=== PATIENT | female | born 1950 | race African-American/Black ===

== ENCOUNTER 2018-02-19 06:54 | Emergency (ER) | payer MEDICARE, MEDICAID ==
[~2018-02-19] VITALS: Ht 149.9 cm; Wt 73.0 kg
[~2018-02-19 06:54] MED LIST: ALBUTEROL INH; AMLO5TAB4 PO; ASPI-1073; ATOR20TA65 PO; HYDROXYZINE; IPRATROPIUM INH; MONT10TA21 PO; PROAIR INH; TRAM50TA3 PO; TRIAMTERENE HCTZ PO
[2018-02-19 08:07] LABS: BASOPHILS % 0.6 % (0.0-2.0); EOSINOPHILS % 0.8 % (0.0-5.0); HEMATOCRIT. 41.8 % (36.0-48.0); HEMOGLOBIN. 14.5 g/dL (12.0-16.0); LYMPHOCYTES % 12.3 % (20.0-50.0); MEAN CORPUSCULAR HEMOGLOBIN 29.3 pg (28.0-32.0); MEAN CORPUSCULAR VOLUME 84.2 fL (81.0-99.0); MEAN PLATELET VOLUME 9.2 fl (7.4-10.4); MONOCYTES % 5.9 % (2.0-8.0); NEUTROPHILS % 80.4 % (40.0-76.0); PLATELET 261 x1000/uL (130-400); RED BLOOD CELL COUNT 4.96 mill/uL (4.2-5.4); RED CELL DISTRIBUTION WIDTH 15.3 % (11.6-14.6)
[2018-02-19 08:46] LABS: PROTHROMBIN TIME 10.7 sec (9.4-11.6)
[2018-02-19 09:41] LABS: CHLORIDE 101 mEq/L (98-107)
[2018-02-19 13:59] VITALS: BP 117/78
== END 2018-02-19 14:01 | disposition left against medical advice (07) ==
LOC: ER 06:54
DX: R07.9 Chest pain, unspecified (principal); R19.7 Diarrhea, unspecified; R42 Dizziness and giddiness; I10 Essential (primary) hypertension; E78.00 Pure hypercholesterolemia, unspecified; J44.9 Chronic obstructive pulmonary disease, unspecified; Z79.82 Long term (current) use of aspirin; Z88.1 Allergy status to other antibiotic agents; R06.02 Shortness of breath
CPT/HCPCS: 36415; 71045; 80053; 83880; 84484; 85025; 85610; 93005; 99285

== ENCOUNTER 2018-07-15 15:30 | Emergency (ER) | payer MEDICARE, MEDICAID ==
[~2018-07-15] VITALS: Ht 162.6 cm; Wt 73.0 kg
[2018-07-15 16:45] LABS: BASOPHILS % 0.6 % (0.0-2.0); HEMATOCRIT. 40.3 % (36.0-48.0); HEMOGLOBIN. 13.7 g/dL (12.0-16.0); LYMPHOCYTES % 29.6 % (20.0-50.0); MEAN CORPUSCULAR HEMOGLOBIN 29.4 pg (28.0-32.0); MEAN CORPUSCULAR VOLUME 86.6 fL (81.0-99.0); MEAN PLATELET VOLUME 9.3 fl (7.4-10.4); MONOCYTES % 11.2 % (2.0-8.0); NEUTROPHILS % 56.6 % (40.0-76.0); PLATELET 226 x1000/uL (130-400); RED BLOOD CELL COUNT 4.65 mill/uL (4.2-5.4); RED CELL DISTRIBUTION WIDTH 15.1 % (11.6-14.6)
[2018-07-15 16:49] LABS: CHLORIDE 103 mEq/L (98-107)
[2018-07-15 16:51] LABS: PROTHROMBIN TIME 10.3 sec (9.1-11.1)
[2018-07-15] MEDS ORDERED: SODIUM CHLORIDE 0.9% 1,000 ML IV ONE ×2 (18:06→18:51)
[2018-07-15 19:53] LABS: CLARITY URINE CLEAR (CLEAR); COLOR URINE YELLOW (YELLOW); KETONES URINE NEGATIVE (NEGATIVE); LEUKOCYTE ESTERASE URINE NEGATIVE (NEGATIVE); NITRITE URINE NEGATIVE (NEGATIVE); OCCULT BLOOD URINE NEGATIVE (NEGATIVE); PROTEIN URINE NEGATIVE (NEGATIVE); SPECIFIC GRAVITY URINE 1.004 (1.005-1.030); UROBILINOGEN URINE 0.2 E.U./dL (0.2-1.0)
[2018-07-15 20:06] LABS: *AMPHETAMINES SCREEN URINE NEGATIVE (NEGATIVE); *BARBITURATES SCREEN URINE NEGATIVE (NEGATIVE); *BENZODIAZEPINES SCREEN URINE NEGATIVE (NEGATIVE); *COCAINE SCREEN URINE NEGATIVE (NEGATIVE)
[2018-07-15 20:07] LABS: CANNABINOID URINE SCREEN NEGATIVE (NEGATIVE); METHADONE URINE SCREEN NEGATIVE (NEGATIVE); OPIATES URINE SCREEN NEGATIVE (NEGATIVE); PHENCYCLIDINE URINE SCREEN NEGATIVE (NEGATIVE)
[2018-07-15 21:00] VITALS: BP 154/91
== END 2018-07-15 21:02 | disposition home or self-care (01) ==
LOC: ER 18:24
DX: E86.0 Dehydration (principal); R42 Dizziness and giddiness; R51 Headache; J44.9 Chronic obstructive pulmonary disease, unspecified; E78.00 Pure hypercholesterolemia, unspecified; I10 Essential (primary) hypertension; Z98.890 Other specified postprocedural states; Z79.82 Long term (current) use of aspirin; Z88.1 Allergy status to other antibiotic agents; Z79.899 Other long term (current) drug therapy
CPT/HCPCS: 36415; 70450; 71045; 80053; 80305; 81003; 83605; 84484; 85025; 85610; 93005; 96360; 99285; J7030

== ENCOUNTER 2019-01-14 14:29 | Emergency (ER) | payer MEDICARE, MEDICAID ==
[~2019-01-14] VITALS: Ht 149.9 cm; Wt 73.0 kg
[2019-01-14 15:00] LABS: CLARITY URINE TURBID (CLEAR); COLOR URINE YELLOW (YELLOW); KETONES URINE NEGATIVE (NEGATIVE); LEUKOCYTE ESTERASE URINE 3+ (NEGATIVE); NITRITE URINE NEGATIVE (NEGATIVE); OCCULT BLOOD URINE 3+ (NEGATIVE); PROTEIN URINE 2+ (NEGATIVE); SPECIFIC GRAVITY URINE 1.013 (1.005-1.030)
[2019-01-14] MEDS ORDERED: KETOROLAC 30MG/ML VIAL IV STA (23:26)
[2019-01-14] MEDS ORDERED: CEFTRIAXONE 1 G PREMIX 50 ML IV ONE (23:30)
[2019-01-14] MEDS ORDERED: SODIUM CHLORIDE 0.9% 500 ML IV ONE (23:30)
[2019-01-15 01:36] VITALS: BP 129/76
== END 2019-01-15 01:37 | disposition home or self-care (01) ==
LOC: ER 15:18
DX: N12 Tubulo-interstitial nephritis, not specified as acute or chronic (principal)
CPT/HCPCS: 81003; 87077; 87086; 87186; 96365; 96375; 99283; J0696; J1885; J7040

== ENCOUNTER 2019-01-21 16:38 | Emergency (ER) | payer MEDICARE, MEDICAID ==
[~2019-01-21] VITALS: Ht 152.4 cm; Wt 73.0 kg
[2019-01-21 23:36] LABS: BASOPHILS % 0.5 % (0.0-2.0); EOSINOPHILS % 2.3 % (0.0-5.0); HEMATOCRIT. 39.5 % (36.0-48.0); HEMOGLOBIN. 13.2 g/dL (12.0-16.0); LYMPHOCYTES % 30.6 % (20.0-50.0); MEAN CORPUSCULAR HEMOGLOBIN 29.3 pg (28.0-32.0); MEAN CORPUSCULAR VOLUME 87.6 fL (81.0-99.0); MEAN PLATELET VOLUME 9.6 fl (7.4-10.4); MONOCYTES % 9.3 % (2.0-8.0); NEUTROPHILS % 57.3 % (40.0-76.0); PLATELET 213 x1000/uL (130-400); RED BLOOD CELL COUNT 4.51 mill/uL (4.2-5.4)
[2019-01-21 23:42] LABS: CHLORIDE 104 mEq/L (98-107)
[2019-01-22 04:55] LABS: CLARITY URINE CLEAR (CLEAR); COLOR URINE YELLOW (YELLOW); KETONES URINE TRACE (NEGATIVE); LEUKOCYTE ESTERASE URINE NEGATIVE (NEGATIVE); NITRITE URINE NEGATIVE (NEGATIVE); OCCULT BLOOD URINE NEGATIVE (NEGATIVE); PROTEIN URINE NEGATIVE (NEGATIVE); SPECIFIC GRAVITY URINE 1.013 (1.005-1.030); UROBILINOGEN URINE 0.2 E.U./dL (0.2-1.0)
[2019-01-22 05:46] VITALS: BP 133/69
== END 2019-01-22 05:46 | disposition home or self-care (01) ==
LOC: ER 16:38 → CANBEDREQ 01-22 06:26
DX: M25.561 Pain in right knee (principal); R07.9 Chest pain, unspecified; R06.00 Dyspnea, unspecified; R53.1 Weakness; I10 Essential (primary) hypertension; J45.909 Unspecified asthma, uncomplicated; Z79.82 Long term (current) use of aspirin; Z79.899 Other long term (current) drug therapy
CPT/HCPCS: 36415; 71045; 73562; 83880; 84484; 93005; 99284

== ENCOUNTER 2024-07-25 14:35 | Emergency (ER) | payer MEDICARE, MEDICAID ==
[~2024-07-25] VITALS: Ht 167.6 cm; Wt 81.0 kg
[~2024-07-25 14:35] MED LIST changes: +MONT-46 PO; -MONT10TA21 PO
[2024-07-25 14:52] VITALS: O2SAT 98
[2024-07-25 15:07] LABS: BASOPHILS % 0.8 % (0.0-2.0); EOSINOPHILS % 2.4 % (0.0-5.0); HEMATOCRIT. 40.7 % (36.0-48.0); HEMOGLOBIN. 13.1 g/dL (12.0-16.0); LYMPHOCYTES % 26.9 % (20.0-50.0); MEAN CORPUSCULAR HEMOGLOBIN 28.6 pg (28.0-32.0); MEAN CORPUSCULAR HGB CONC 32.2 g/dL (31.0-37.0); MEAN CORPUSCULAR VOLUME 88.8 fL (81.0-99.0); MEAN PLATELET VOLUME 9.1 fl (7.4-10.4); MONOCYTES % 9.6 % (2.0-8.0); NEUTROPHILS % 60.3 % (40.0-76.0); PLATELET 200 x1000/uL (130-400); RED BLOOD CELL COUNT 4.59 mill/uL (4.2-5.4); RED CELL DISTRIBUTION WIDTH 15.5 % (11.6-14.6); WHITE BLOOD COUNT 8.6 x1000/uL (4.5-11.0)
[2024-07-25 15:12] LABS: CHLORIDE 105 mEq/L (98-107); SODIUM 139 mEq/L (136-145)
[2024-07-25 15:13] LABS: CARBON DIOXIDE 28 mEq/L (21-32)
[2024-07-25 15:14] LABS: CALCIUM 9.7 mg/dL (8.7-10.4)
[2024-07-25 15:18] LABS: CREATININE 0.9 mg/dL (0.6-1.0); GLUCOSE 100 mg/dL (70-105)
[2024-07-25 15:19] LABS: UREA NITROGEN BLOOD 11 mg/dL (9-23)
[2024-07-25] MEDS: SODIUM CHLORIDE 0.9% 1,000 ML IV ONE (15:30)
[2024-07-25 16:03] LABS: CLARITY URINE CLEAR (CLEAR); COLOR URINE YELLOW (YELLOW); GLUCOSE URINE NEGATIVE (NEGATIVE); KETONES URINE NEGATIVE (NEGATIVE); LEUKOCYTE ESTERASE URINE NEGATIVE (NEGATIVE); NITRITE URINE NEGATIVE (NEGATIVE); OCCULT BLOOD URINE NEGATIVE (NEGATIVE); PH URINE 5.5 (4.5-8.0); PROTEIN URINE NEGATIVE (NEGATIVE); SPECIFIC GRAVITY URINE 1.022 (1.005-1.030)
[2024-07-25 16:19] LABS: TROPONIN I HIGH SENSITIVITY < 4 ng/L (3.0-34)
[2024-07-25] MEDS: ACETAMINOPHEN 325MG TABLET PO ONE (17:03)
[2024-07-25] MEDS: ONDANSETRON 4MG ODT PO ONE (17:04)
[2024-07-25 19:30] VITALS: BP 155/87; PULSE 79; RESP 17; TEMP 36.78072; O2SAT 100
[2024-07-25] MEDS ORDERED: IBUP-1523 MT (19:43)
[2024-07-25] MEDS ORDERED: PROM25TA13 MT (19:43)
[2024-07-25] MEDS ORDERED: CIPR-263 MT (19:43)
[2024-07-25] MEDS ORDERED: TOPUD MT (19:43)
== END 2024-07-25 19:59 | disposition home or self-care (01) ==
LOC: ER 14:35
DX: K52.9 Noninfective gastroenteritis and colitis, unspecified (principal); I10 Essential (primary) hypertension; J45.909 Unspecified asthma, uncomplicated; Z98.890 Other specified postprocedural states; Z88.1 Allergy status to other antibiotic agents; Z79.899 Other long term (current) drug therapy
CPT/HCPCS: 99284; 74176; 96360; 96361; 80048; 81003; 83605; 83690; 85025; 84484; 36415; Q0162; J7030

== ENCOUNTER 2025-05-01 10:43 | Emergency (ER) | payer MEDICARE, MEDICAID ==
[~2025-05-01] VITALS: Ht 152.4 cm; Wt 68.0 kg
[~2025-05-01 10:43] MED LIST changes: -AMLO5TAB4 PO; +AMLO5TAB5 PO; +CIPR-263 MT; +IBUP-1523 MT; +PROM25TA13 MT; +TOPUD MT
[2025-05-01 10:58] VITALS: TEMP 36.9; O2SAT 97
[2025-05-01 11:57] LABS: CLARITY URINE CLEAR (CLEAR); COLOR URINE YELLOW (YELLOW); GLUCOSE URINE NEGATIVE (NEGATIVE); KETONES URINE NEGATIVE (NEGATIVE); LEUKOCYTE ESTERASE URINE NEGATIVE (NEGATIVE); NITRITE URINE NEGATIVE (NEGATIVE); OCCULT BLOOD URINE NEGATIVE (NEGATIVE); PROTEIN URINE NEGATIVE (NEGATIVE); SPECIFIC GRAVITY URINE 1.005 (1.005-1.030); UROBILINOGEN URINE 0.2 E.U./dL (0.2-1.0)
[2025-05-01 12:03] LABS: BASOPHILS % 1.1 % (0.0-2.0); EOSINOPHILS % 0.7 % (0.0-5.0); HEMATOCRIT. 40.3 % (36.0-48.0); HEMOGLOBIN. 13.5 g/dL (12.0-16.0); LYMPHOCYTES % 25.6 % (20.0-50.0); MEAN CORPUSCULAR HEMOGLOBIN 29.2 pg (28.0-32.0); MEAN CORPUSCULAR HGB CONC 33.6 g/dL (31.0-37.0); MEAN CORPUSCULAR VOLUME 87.1 fL (81.0-99.0); MEAN PLATELET VOLUME 9.1 fl (7.4-10.4); MONOCYTES % 8.6 % (2.0-8.0); PLATELET 190 x1000/uL (130-400); RED BLOOD CELL COUNT 4.63 mill/uL (4.2-5.4); RED CELL DISTRIBUTION WIDTH 15.7 % (11.6-14.6)
[2025-05-01] MEDS: ACETAMINOPHEN 325MG TABLET PO STA (12:27)
[2025-05-01] MEDS: FAMOTIDINE 20MG/2ML VIAL IV ONE (12:27)
[2025-05-01] MEDS: METOPROLOL TARTRATE 25MG TABLET PO ONE (12:27)
[2025-05-01] MEDS: MAGNESIUM/ALUMINUM HYDROXIDE/SIMETHICONE 30ML UDC PO STA (12:27)
[2025-05-01] MEDS: AMLODIPINE 5MG TABLET PO ONE (12:28)
[2025-05-01 13:17] LABS: PROTHROMBIN TIME 11.1 sec (9.6-11.0)
[2025-05-01 13:18] LABS: CHLORIDE 103 mEq/L (98-107); POTASSIUM 3.9 mEq/L (3.5-5.1)
[2025-05-01 13:19] LABS: CARBON DIOXIDE 28 mEq/L (21-32); SODIUM 142 mEq/L (136-145)
[2025-05-01 13:20] LABS: CALCIUM 9.4 mg/dL (8.7-10.4)
[2025-05-01 13:24] LABS: CREATININE 0.7 mg/dL (0.6-1.0); GLUCOSE 93 mg/dL (70-105)
[2025-05-01 13:25] LABS: TROPONIN I HIGH SENSITIVITY 8 ng/L (3.0-34); UREA NITROGEN BLOOD 9 mg/dL (9-23)
[2025-05-01 13:26] LABS: ALANINE AMINOTRANSFERASE 9 IU/L (10-49); ALBUMIN 4.2 g/dL (3.2-4.8); ASPARTATE AMINOTRANSFERASE 19 IU/L (<34)
[2025-05-01 13:27] LABS: BILIRUBIN DIRECT 0.2 mg/dL (<=3.0); BILIRUBIN TOTAL 0.8 mg/dL (0.1-1.0); PROTEIN TOTAL 7.3 g/dL (6.0-8.3)
[2025-05-01] MEDS ORDERED: MAG355OR21 MT (14:34)
[2025-05-01] MEDS ORDERED: FAMO-135 MT (14:34)
[2025-05-01 14:45] VITALS: BP 150/91; PULSE 56; RESP 14; O2SAT 100
[2025-05-01] MEDS ORDERED: IOHEXOL-300 100 ML BOTTLE ONE (23:03)
== END 2025-05-01 15:18 | disposition home or self-care (01) ==
LOC: ER 10:43
DX: K29.70 Gastritis, unspecified, without bleeding (principal); I10 Essential (primary) hypertension; J45.909 Unspecified asthma, uncomplicated; Z98.890 Other specified postprocedural states; Z79.899 Other long term (current) drug therapy; Z88.1 Allergy status to other antibiotic agents
CPT/HCPCS: 99285; 74177; 96374; 71045; 80076; 80048; 81003; 83880; 83690; 85025; 85610; 84484; 36415; Q9967; J1308; A4606